=== PATIENT | male | born 1990 | race Caucasian/White ===

== ENCOUNTER 2016-07-08 04:54 | Emergency (ER) | payer BC ==
[~2016-07-08] VITALS: Ht 180.3 cm; Wt 120.6 kg
[2016-07-08 05:01] VITALS: BP 133/91; PULSE 86; RESP 18; TEMP 97.8; O2SAT 98
[2016-07-08] MEDS ORDERED: ZANT150T2 PO (05:23)
[2016-07-08] MEDS ORDERED: BUSP5TAB PO (05:23)
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
--- NOTE | 2016-07-08 06:21 | RADHPO ---
EXAM DATE/TIME: 07/08/2016 06:05 [place] COMPARISON: No previous studies available for comparison. INDICATIONS : Right shoulder pain from injury 2 days ago. MEDICAL HISTORY : None. SURGICAL HISTORY : Appendectomy. ENCOUNTER: Initial ACUITY: 2 days PAIN SCORE: 8/10 LOCATION: Right Shoulder FINDINGS: Multiple view examination of the right shoulder demonstrates no evidence of fracture or dislocation. The glenohumeral and acromioclavicular joints are maintained. There is normal range of motion betwe en internal and external rotation. Bony mineralization is normal. CONCLUSION: Unremarkable examination of the right shoulder. Luc Gallo Jr., MD on July 08, 2016 at 6:19 Board Certified Radiologist. This report was verified electronically.
[2016-07-08] MEDS ORDERED: MOTR200T4 PO (06:27)
[2016-07-08] MEDS ORDERED: CYCL1TAB29 PO (06:27)
[2016-07-08] MEDS ORDERED: IBUPROFEN 600 MG TAB PO ONE (06:30)
== END 2016-07-08 06:41 | disposition home or self-care (01) ==
LOC: PHED 04:54
DX: S46.911A Strain of unspecified muscle, fascia and tendon at shoulder and upper arm level, right arm, initial encounter (principal); K21.9 Gastro-esophageal reflux disease without esophagitis; F17.200 Nicotine dependence, unspecified, uncomplicated; X58.XXXA Exposure to other specified factors, initial encounter; Y93.84 Activity, sleeping; Y92.59 Other trade areas as the place of occurrence of the external cause
CPT/HCPCS: 73030; 99283